=== PATIENT | female | born 1950 | race African-American/Black ===

== ENCOUNTER 2020-05-13 12:39 | Emergency (ER) | payer MEDICARE, SELFPAY ==
[2020-05-13 12:59] VITALS: BP 167/93; PULSE 78; RESP 14; TEMP 36.2; O2SAT 99
--- NOTE | 2020-05-13 13:10 | DI.CT.S_ITS ---
PROCEDURE: CT HEAD/BRAIN WO CON INDICATIONS: fall, hit head 2 days ago, 'woozy' TECHNIQUE: Noncontrast 4.5 mm thick angled axial sections acquired from the foramen magnum to the vertex, with coronal and sagittal reformats. For radiation dose reduction, the following was used: automated exposure control, adjustment of mA and/or kV according to patient size. COMPARISON: None. FINDINGS: Image quality: Excellent. CSF spaces: Basal cisterns are patent. No extra-axial fluid collections. The ventricles are symmetric in size and shape. Brain: No intracranial bleeds or masses. There is cerebral volume loss for age, with resultant ventricular and sulcal prominence. There are periventricular and deep white matter chronic small vessel ischemic changes. There is intracranial internal carotid artery atherosclerosis. Skull and face: Calvarium and visualized facial bones appear intact, without suspicious lesions. Sinuses: Visualized sinuses and mastoids are clear. IMPRESSION: No acute intracranial disease process. Dictated by: Carol Cobb MD, PhD on 05/13/2020 at 13:27 Approved by: Carol Cobb MD, PhD on 05/13/2020 at 13:39
--- NOTE | 2020-05-13 13:58 | ED_ITS ---
HPI - Fall <DAFNE Kapadia - Last Filed: 05/13/20 15:58> General Chief Complaint: Fall Stated Complaint: fall few days ago, hit head on car Time Seen by Provider: 05/13/20 12:49 Source: patient and family Mode of arrival: Ambulatory Limitations: no limitations History of Present Illness HPI Narrative: This is a 69-year-old female, nonsmoker, who has past medical history significant for hypertension presents to ED with chief complain of right forehead pain and feeling woozy. Patient reports she had taken a fall 2 days ago walking to her car on a uneven ground and she stumble into the car and hit her right-sided forehead and fell backwards on the ground. Patient denies loss of consciousness at that time. She denies vision changes, nausea, vomiting, or unusual behaviors according to daughter. Patient denies tingling, numbness, weakness to upper extremities or mid cervical tenderness. Patient takes baby aspirin or full dose aspirin daily. Patient has an appointment with new primary care physician Dr. Colindres at [facility]. Related Data Allergies Allergy/AdvReac Type Severity Reaction Status Date / Time No Known Drug Allergies Allergy Verified 05/13/20 13:04 Review of Systems <NICHOLAS KapadiaP - Last Filed: 05/13/20 15:58> Review of Systems Narrative: General: Denies fever, chills, fatigue, malaise, sweats. HEENT: See HPI Respiratory: Denies dyspnea, cough, wheezing, hemoptysis, sputum. Cardiovascular: Denies chest pain, palpitations, orthopnea, edema. Gastrointestinal: Denies nausea, vomiting, abdominal pain, diarrhea, constipation, melena. : Denies dysuria, frequency, incontinence, hematuria, urinary retention. Musculoskeletal: Denies weakness, joint pain or bony pain. Skin: Denies rash, skin lesions, or other. Neurologic: See HPI Psychiatric: No concerning psychosocial issues. 12-point review of systems is negative except for those stated above. Patient History <DAFNE Kapadia - Last Filed: 05/13/20 15:58> Medical History Hypertension Social History Smoking Status: Never smoker Smoking Status: Never smoker alcohol intake frequency: 0-2 drinks per day Substance Use Type: does not use Exam <Fer DAFNE Lindo - Last Filed: 05/13/20 15:58> Narrative Exam Narrative: GEN: Alert, oriented x 3, well appearing and nourished, and in no acute distress. Head: Normal cephalic, atraumatic. Right forehead tenderness to palpate. No temporal tenderness, step-offs, palpable mass or rash. EYES: Pupils are equal, round, and reactive to light and accommodation. Extraocular muscles are intact bilaterally. There is no subconjunctival hemorrhage, exudate and sclera non-icteric. ENT: Bilateral auditory canals and tympanic membranes clear without drainage or hemotympanum. Hearing grossly intact. Nose without bleeding, purulent discharge, septal hematoma or deviation. Mucous membrane moist, no mucosal lesion. Throat without erythema, tonsillar hypertrophy or exudate. Uvula in midline, airway patent. Neck: Trachea in midline. No JVD, non-tender without lymphadenopathy. No masses or thyroid megaly. Supple, non-tender to palpate in mid cervical region and no meningeal signs. CARDIAC: Normal regular rate and rhythm without murmurs, gallops, or rubs. No chest wall tenderness. No peripheral edema, cyanosis or pallor. Capillary refill is less than 2 seconds. No carotid bruits. RESPIRATORY: Lungs are cleat to auscultate bilaterally. No cough, wheezes, rales, or rhonchi. No stridor, respiratory distress, increase work of breathing, or accessary muscle used. ABD: Abdomen soft, nontender and non-distended. No guarding or rebound tenderness to palpate. Bowel sounds are normal in all 4 quadrants. There is no palpable masses or organomegaly. EXT: Full painless ROM of all extremities with no loss of sensation, strength, effusion or edema. SKIN: Warm, dry, normal color for patient. Left knee superficial mild abrasion without erythema, warmth or swelling. BACK: Nontender without deformity or crepitance. No flank tenderness. NEUROLOGICAL: Alert and oriented to place, time and person. No facial droops, dysphasia. Strength and sensation symmetric and intact throughout. Cerebellar testing normal. PSYCHIATRIC: Good judgement and reason, without hallucinations, abnormal affect or abnormal behaviors during the examination. Patient is not suicidal. Initial Vital Signs Initial Vital Signs: Vital Signs Temperature 97.1 F L 05/13/20 12:59 Pulse Rate 78 05/13/20 12:59 Respiratory Rate 14 05/13/20 12:59 Blood Pressure 167/93 H 05/13/20 12:59 Pulse Oximetry 99 05/13/20 12:59 <Edison Berry DO - Last Filed: 05/13/20 17:59> Initial Vital Signs Initial Vital Signs: Vital Signs Temperature 97.1 F L 05/13/20 12:59 Pulse Rate 78 05/13/20 12:59 Respiratory Rate 14 05/13/20 12:59 Blood Pressure 167/93 H 05/13/20 12:59 Pulse Oximetry 99 05/13/20 12:59 Scores <DAFNE Kapadia - Last Filed: 05/13/20 15:58> GCS Annabel coma scale eye opening: Spontaneous Annabel coma scale verbal response: Orientated Annabel coma scale motor response: Obey commands [place] coma scale total score: 15 Nexus Score for C-Spine Focal Neurologic deficit present: No Midline spinal tenderness present: No Altered level of conciousness present: No Intoxication present: No Distracting Injury Present: No Nexus Criteria for C-spine: 0 Course <DAFNE Kapadia - Last Filed: 05/13/20 15:58> Orders Ordered: ED Orders 05/13/20 13:10 CT head/brain wo con Stat Discontinued Medications Ibuprofen (Ibuprofen 400 Mg Tablet) 400 mg PO NOW ONE Stop: 05/13/20 13:56 Last Admin: 05/13/20 14:30 Dose: 400 mg Documented by: JORDAN Vital Signs Vital signs: Vital Signs - 8 hr 05/13/20 12:59 05/13/20 14:34 Temperature 97.1 F L Pulse Rate 78 65 Respiratory Rate 14 16 Blood Pressure 167/93 H 127/78 Pulse Oximetry 99 100 <Edison Berry DO - Last Filed: 05/13/20 17:59> Orders Ordered: ED Orders 05/13/20 13:10 CT head/brain wo con Stat Discontinued Medications Ibuprofen (Ibuprofen 400 Mg Tablet) 400 mg PO NOW ONE Stop: 05/13/20 13:56 Last Admin: 05/13/20 14:30 Dose: 400 mg Documented by: JORDAN Vital Signs Vital signs: Vital Signs - 8 hr 05/13/20 12:59 05/13/20 14:34 Temperature 97.1 F L Pulse Rate 78 65 Respiratory Rate 14 16 Blood Pressure 167/93 H 127/[address] [facility] - Fall <DAFNE Kapadia - Last Filed: 05/13/20 15:58> Differential Diagnosis Differential diagnosis: Likely concussion without loss of consciousness and other (Closed head injury, Sub/Epidural bleed, intracranial hemorrhage) Medical Records Attestation: I reviewed the patient's medical records. Imaging Data CT scan - head: Radiologist's Impression: [address] [id number] Scan ReportSigned Patient: Maile Leo#: [id number]: 1950Acct:[id number]/Sex: 69 / FDate of Service: 05/13/20Loc: EDAccession Number: [id number] Procedure: CT head/brain wo con Ordering Provider: Fer Lindo PROCEDURE: CT HEAD/BRAIN WO CON INDICATIONS: fall, hit head 2 days ago, 'woozy' TECHNIQUE: Noncontrast 4.5 mm thick angled axial sections acquired from the foramen magnum to the vertex, with coronal and sagittal reformats. For radiation dose reduction, the following was used: automated exposure control, adjustment of mA and/or kV according to patient size. COMPARISON: None. FINDINGS: Image quality: Excellent. CSF spaces: Basal cisterns are patent. No extra-axial fluid collections. The ventricles are symmetric in size and shape. Brain: No intracranial bleeds or masses. There is cerebral volume loss for age, with resultant ventricular and sulcal prominence. There are periventricular and deep white matter chronic small vessel ischemic changes. There is intracranial internal carotid artery atherosclerosis. Skull and face: Calvarium and visualized facial bones appear intact, without suspicious lesions. Sinuses: Visualized sinuses and mastoids are clear. IMPRESSION: No acute intracranial disease process. Dictated by: Carol Cobb MD, PhD on 05/13/2020 at 13:27 Approved by: Carol Cobb MD, PhD on 05/13/2020 at 13:39 [facility] Narrative Medical decision making narrative: This is a pleasant 69-year-old female presents to ED with her daughter with chief complain of fall on on even ground and landed on right side forehead to her car initially and fell backwards on the ground. She also reports left knee abrasion but is able to bear her weight on bilateral legs without difficulty and has stable gait. Physical exam was unremarkable with no focal neurological deficit. There is no mid cervical tenderness to palpate with intact sensation and strength in upper bilateral extremities. Head CT test was negative for acute findings. GCS 15 and Nexus c spine score 0. Patient was medicated with Motrin and declined Tylenol stating does not work for her. Patient advised to follow-up with primary care physician with return precautions to ED and she verbalized understanding in agreement with the treatment plan. Discharge Plan Departure Patient Disposition: Home Clinical Impression: CHI (closed head injury) Qualifiers: Encounter type: initial encounter Qualified Code(s): S09.90XA - Unspecified injury of head, initial encounter Fall Qualifiers: Encounter type: initial encounter Qualified Code(s): W19.XXXA - Unspecified fall, initial encounter Instructions: DI for Closed Head Injury Activity Restrictions/Additional Instructions: You have been diagnosed with [closed head injury from a fall. Head CT test was negative for acute findings.]. What to do: *Take your medications as directed. You can take [id number] Tylenol and or Motrin as needed for discomfort. *Follow up with your primary care provider in 2-3 days, call for an appointment. Let them know you were seen in the ED and that we asked you to be seen in follow up. *Return to ED if you have any new, worsening, or concerning symptoms, such as [worsening headache, double vision, vomiting, weakness/numbness/tingling on upper extremities, or any acute concerns]. Referrals: Mauro Bae MD [Non-Staff] - <Edison Berry DO - Last Filed: 05/13/20 17:59> Cosign ED Attending Cosignature Attestation: Dr Berry Co-Sign Statement: I was available for consultation during this patient's emergency department visit. This chart is signed by myself for administrative purposes only. I did not have direct contact with this patient during this visit. They were seen independently by the APC.
[2020-05-13] MEDS: IBUPROFEN 400 MG TABLET PO (14:30)
[2020-05-13 14:34] VITALS: BP 127/78; PULSE 65; RESP 16; O2SAT 100
== END 2020-05-13 14:36 | disposition home or self-care (01) ==
PROVIDERS: Emergency Provider Nurse Practitioner Family
DX: S09.90XA Unspecified injury of head, initial encounter (principal); I10 Essential (primary) hypertension; Z79.82 Long term (current) use of aspirin; W19.XXXA Unspecified fall, initial encounter
CPT/HCPCS: 70450; 99283; 99284

== ENCOUNTER → 2023-05-16 13:02 | Outpatient (CLI) | payer MEDICARE, SELFPAY | LOC: WC 13:40 | PROVIDERS: PCP Internal Medicine; Referring Provider Podiatrist; Visit Provider Surgery | DX: L97.322 Non-pressure chronic ulcer of left ankle with fat layer exposed (principal); I87.2 Venous insufficiency (chronic) (peripheral); R60.0 Localized edema; I10 Essential (primary) hypertension | CPT/HCPCS: 11042; 11045; 87070; 87075; 87077; 87186; 87205; 99203; 99214 ==

== ENCOUNTER → 2023-05-21 10:56 | Outpatient (CLI) | payer MEDICARE, SELFPAY | PROVIDERS: PCP Internal Medicine; Referring Provider Podiatrist; Visit Provider Physician Assistant | DX: L97.322 Non-pressure chronic ulcer of left ankle with fat layer exposed (principal); I87.2 Venous insufficiency (chronic) (peripheral); R60.0 Localized edema | CPT/HCPCS: 29580 ==

== ENCOUNTER → 2023-05-24 10:39 | Outpatient (CLI) | payer MEDICARE, SELFPAY | LOC: WC 10:40 | PROVIDERS: PCP Internal Medicine; Referring Provider Podiatrist; Visit Provider Physician Assistant | DX: L97.322 Non-pressure chronic ulcer of left ankle with fat layer exposed (principal); I87.2 Venous insufficiency (chronic) (peripheral); R60.0 Localized edema | CPT/HCPCS: 29581 ==

== ENCOUNTER → 2023-05-28 11:06 | Outpatient (CLI) | payer MEDICARE, SELFPAY | LOC: WC 11:07 | PROVIDERS: PCP Internal Medicine; Referring Provider Podiatrist; Visit Provider Surgery | DX: L97.322 Non-pressure chronic ulcer of left ankle with fat layer exposed (principal); I87.2 Venous insufficiency (chronic) (peripheral); R60.0 Localized edema; I10 Essential (primary) hypertension | CPT/HCPCS: 11042; 11045; 99213 ==

== ENCOUNTER → 2023-06-04 13:26 | Outpatient (CLI) | payer MEDICARE, SELFPAY | PROVIDERS: PCP Internal Medicine; Referring Provider Podiatrist; Visit Provider Surgery | DX: L97.322 Non-pressure chronic ulcer of left ankle with fat layer exposed (principal); I87.2 Venous insufficiency (chronic) (peripheral); R60.0 Localized edema; I10 Essential (primary) hypertension | CPT/HCPCS: 11042; 11045 ==

== ENCOUNTER → 2023-06-06 13:02 | Outpatient (CLI) | payer MEDICARE, SELFPAY | PROVIDERS: PCP Internal Medicine; Referring Provider Podiatrist; Visit Provider Surgery | DX: L97.322 Non-pressure chronic ulcer of left ankle with fat layer exposed (principal); I87.2 Venous insufficiency (chronic) (peripheral); R60.0 Localized edema | CPT/HCPCS: 29581 ==

== ENCOUNTER → 2023-06-10 11:24 | Outpatient (CLI) | payer MEDICARE, SELFPAY | LOC: WC 11:24 | PROVIDERS: PCP Internal Medicine; Referring Provider Podiatrist; Visit Provider Surgery | DX: L97.322 Non-pressure chronic ulcer of left ankle with fat layer exposed (principal); I87.2 Venous insufficiency (chronic) (peripheral); R60.0 Localized edema; M25.571 Pain in right ankle and joints of right foot; I10 Essential (primary) hypertension; Z79.2 Long term (current) use of antibiotics | CPT/HCPCS: 29581; 99213 ==

== ENCOUNTER → 2023-06-13 08:57 | Outpatient (CLI) | payer MEDICARE, SELFPAY | LOC: WC 06-19 08:58 | PROVIDERS: PCP Internal Medicine; Referring Provider Podiatrist; Visit Provider Surgery | DX: L97.322 Non-pressure chronic ulcer of left ankle with fat layer exposed (principal); I87.2 Venous insufficiency (chronic) (peripheral); R60.0 Localized edema; L08.89 Other specified local infections of the skin and subcutaneous tissue | CPT/HCPCS: 29581 ==

== ENCOUNTER → 2023-06-17 11:20 | Outpatient (CLI) | payer MEDICARE, SELFPAY | LOC: WC 11:20 | PROVIDERS: PCP Internal Medicine; Referring Provider Podiatrist; Visit Provider Surgery | DX: L97.322 Non-pressure chronic ulcer of left ankle with fat layer exposed (principal); I87.2 Venous insufficiency (chronic) (peripheral); L08.89 Other specified local infections of the skin and subcutaneous tissue; Z79.2 Long term (current) use of antibiotics; I10 Essential (primary) hypertension | CPT/HCPCS: 11042; 11045; 99213 ==

== ENCOUNTER → 2023-06-20 11:29 | Outpatient (CLI) | payer MEDICARE, SELFPAY | LOC: WC 11:30 | PROVIDERS: PCP Internal Medicine; Referring Provider Podiatrist; Visit Provider Surgery | DX: L97.322 Non-pressure chronic ulcer of left ankle with fat layer exposed (principal); I87.2 Venous insufficiency (chronic) (peripheral); R60.0 Localized edema | CPT/HCPCS: 29581 ==

== ENCOUNTER → 2023-06-24 08:44 | Outpatient (CLI) | payer MEDICARE, SELFPAY | PROVIDERS: PCP Internal Medicine; Referring Provider Podiatrist; Visit Provider Surgery | DX: L97.322 Non-pressure chronic ulcer of left ankle with fat layer exposed (principal); I87.2 Venous insufficiency (chronic) (peripheral); I10 Essential (primary) hypertension; R60.0 Localized edema | CPT/HCPCS: 29581; 99213 ==

== ENCOUNTER → 2023-06-27 11:02 | Outpatient (CLI) | payer MEDICARE, SELFPAY | LOC: WC 11:04 | PROVIDERS: PCP Internal Medicine; Referring Provider Podiatrist; Visit Provider Surgery | DX: L97.322 Non-pressure chronic ulcer of left ankle with fat layer exposed (principal); I87.2 Venous insufficiency (chronic) (peripheral); R60.0 Localized edema | CPT/HCPCS: 29581 ==

== ENCOUNTER → 2023-07-01 11:05 | Outpatient (CLI) | payer MEDICARE, SELFPAY | PROVIDERS: PCP Internal Medicine; Referring Provider Podiatrist; Visit Provider Surgery | DX: L97.322 Non-pressure chronic ulcer of left ankle with fat layer exposed (principal); I87.2 Venous insufficiency (chronic) (peripheral); R60.0 Localized edema | CPT/HCPCS: 29581; 87070; 87075; 87077; 87186; 87205; 99213 ==

== ENCOUNTER → 2023-07-01 14:30 | Outpatient (CLI) | payer MEDICARE, SELFPAY ==
--- NOTE | 2023-07-01 | DI.US.S_ITS ---
PROCEDURE: US THYROID INDICATIONS: Nontoxic single thyroid nodule TECHNIQUE: Real-time scanning was performed of the thyroid gland, with image documentation. COMPARISON: None. FINDINGS: Thyroid: Right lobe measures 4.2 x 1.6 x 1.8 cm. Left lobe measures 3.5 x 1.4 x 1.4 cm. Isthmus is 3 cm thick. Echotexture is homogeneous. Nodule number: 1 Location: Isthmus Size: 1.3 x 0.5 x 1.0 cm. Composition: Solid Echogenicity: Hypoechoic Shape: wider than tall. Margins: Smooth Echogenic foci: Punctate Total points: 7 ACR TI-RADS category: 5 Nodule number: 2 Location: Right mid Size: 0.8 x 0.6 x 0.8 cm. Composition: Solid Echogenicity: Hypoechoic Shape: wider than tall. Margins: Smooth Echogenic foci: None Total points: 4 ACR TI-RADS category: 4 Nodule number: 3 Location: Left inferior Size: 1.2 x 1.0 x 1.4 cm. Composition: Solid Echogenicity: Hypoechoic Shape: wider than tall. Margins: Smooth Echogenic foci: Punctate Total points: 7 ACR TI-RADS category: 5 IMPRESSION: Lesions 1 and 3 are considered category 5. Secondary to size, FNA is recommended. Lesion 2 is considered category 4. Secondary to size and characteristics, no additional follow-up as below. ACR TI-RADS definitions and recommendations: TI-RADS 1 (benign): 0 points. FNA not needed. TI-RADS 2 (not suspicious): 2 points. FNA not needed. TI-RADS 3 (mildly suspicious): 3 points. * FNA if 2.5 cm or larger, follow up if 1.5 cm or larger (at 1, 3, and 5 years). TI-RADS 4 (moderately suspicious): 4-6 points. * FNA if 1.5 cm or larger, follow up if 1 cm or larger (at 1, 2, 3, and 5 years). TI-RADS 5 (highly suspicious): 7 points or more. * FNA if 1 cm or larger, follow up if 0.5 cm or larger (every year for 5 years). Dictated by: Adeline Salmon M.D. on 07/01/2023 at 17:41 Approved by: Adeline Salmon M.D. on 07/01/2023 at 17:43
== END ==
PROVIDERS: PCP Internal Medicine; Referring Provider Internal Medicine; Visit Provider Internal Medicine
DX: E04.2 Nontoxic multinodular goiter (principal); L97.322 Non-pressure chronic ulcer of left ankle with fat layer exposed; I87.2 Venous insufficiency (chronic) (peripheral); R60.0 Localized edema
CPT/HCPCS: 29581; 76536; 87070; 87075; 87077; 87186; 87205

== ENCOUNTER → 2023-07-04 14:15 | Outpatient (CLI) | payer MEDICARE, SELFPAY | LOC: WC 14:15 | PROVIDERS: PCP Internal Medicine; Referring Provider Podiatrist; Visit Provider Surgery | DX: L97.322 Non-pressure chronic ulcer of left ankle with fat layer exposed (principal); I87.2 Venous insufficiency (chronic) (peripheral); R60.0 Localized edema | CPT/HCPCS: 99213 ==

== ENCOUNTER → 2023-07-08 13:13 | Outpatient (CLI) | payer MEDICARE, SELFPAY | LOC: WC 13:13 | PROVIDERS: PCP Internal Medicine; Referring Provider Internal Medicine; Visit Provider Surgery | DX: L97.322 Non-pressure chronic ulcer of left ankle with fat layer exposed (principal); I87.2 Venous insufficiency (chronic) (peripheral); R60.0 Localized edema | CPT/HCPCS: 11042; 11045 ==

== ENCOUNTER → 2023-07-15 15:47 | Outpatient (CLI) | payer MEDICARE, SELFPAY | PROVIDERS: PCP Internal Medicine; Referring Provider Podiatrist; Visit Provider Surgery | DX: L97.322 Non-pressure chronic ulcer of left ankle with fat layer exposed (principal); I87.2 Venous insufficiency (chronic) (peripheral); R60.0 Localized edema; I10 Essential (primary) hypertension | CPT/HCPCS: 11042; 11045; 99213 ==

== ENCOUNTER → 2023-07-22 10:06 | Outpatient (CLI) | payer MEDICARE, SELFPAY | LOC: WC 10:33 | PROVIDERS: PCP Internal Medicine; Referring Provider Podiatrist; Visit Provider Surgery | DX: L97.322 Non-pressure chronic ulcer of left ankle with fat layer exposed (principal); I87.2 Venous insufficiency (chronic) (peripheral); R60.0 Localized edema; I10 Essential (primary) hypertension | CPT/HCPCS: 11042 ==

== ENCOUNTER → 2023-07-29 12:50 | Outpatient (CLI) | payer MEDICARE, SELFPAY | LOC: WC 12:51 | PROVIDERS: PCP Internal Medicine; Referring Provider Family Medicine; Visit Provider Surgery | DX: L97.322 Non-pressure chronic ulcer of left ankle with fat layer exposed (principal); I87.2 Venous insufficiency (chronic) (peripheral); R60.0 Localized edema; I10 Essential (primary) hypertension | CPT/HCPCS: 11042; 11045 ==

== ENCOUNTER → 2023-08-05 14:34 | Outpatient (CLI) | payer MEDICARE, SELFPAY | LOC: WC 14:40 | PROVIDERS: PCP Internal Medicine; Referring Provider Podiatrist; Visit Provider Surgery | DX: L97.322 Non-pressure chronic ulcer of left ankle with fat layer exposed (principal); I87.2 Venous insufficiency (chronic) (peripheral); R60.0 Localized edema; M25.572 Pain in left ankle and joints of left foot; I10 Essential (primary) hypertension | CPT/HCPCS: 11042 ==

== ENCOUNTER → 2023-08-14 11:22 | Outpatient (CLI) | payer MEDICARE, SELFPAY | PROVIDERS: PCP Internal Medicine; Referring Provider Podiatrist; Visit Provider Surgery | DX: L97.322 Non-pressure chronic ulcer of left ankle with fat layer exposed (principal); I87.2 Venous insufficiency (chronic) (peripheral); R60.0 Localized edema; I10 Essential (primary) hypertension; M25.572 Pain in left ankle and joints of left foot | CPT/HCPCS: 97597; 97598; 99213 ==

== ENCOUNTER → 2023-08-19 11:11 | Outpatient (CLI) | payer MEDICARE, SELFPAY | LOC: WC 11:11 | PROVIDERS: PCP Internal Medicine; Referring Provider Podiatrist; Visit Provider Surgery | DX: L97.322 Non-pressure chronic ulcer of left ankle with fat layer exposed (principal); I87.2 Venous insufficiency (chronic) (peripheral); R60.0 Localized edema; I10 Essential (primary) hypertension | CPT/HCPCS: 11042 ==

== ENCOUNTER → 2023-08-26 11:32 | Outpatient (CLI) | payer MEDICARE, SELFPAY | LOC: WC 11:33 | PROVIDERS: PCP Internal Medicine; Referring Provider Podiatrist; Visit Provider Surgery | DX: L97.322 Non-pressure chronic ulcer of left ankle with fat layer exposed (principal); I87.2 Venous insufficiency (chronic) (peripheral); R60.0 Localized edema; I10 Essential (primary) hypertension | CPT/HCPCS: 11042; 11045 ==

== ENCOUNTER → 2023-09-02 11:23 | Outpatient (CLI) | payer MEDICARE, SELFPAY | LOC: WC 11:23 | PROVIDERS: PCP Internal Medicine; Referring Provider Podiatrist; Visit Provider Surgery | DX: L97.322 Non-pressure chronic ulcer of left ankle with fat layer exposed (principal); I87.2 Venous insufficiency (chronic) (peripheral); R60.0 Localized edema; M25.572 Pain in left ankle and joints of left foot; I10 Essential (primary) hypertension | CPT/HCPCS: 11042 ==

== ENCOUNTER → 2023-09-09 11:33 | Outpatient (CLI) | payer MEDICARE, SELFPAY | PROVIDERS: PCP Internal Medicine; Referring Provider Podiatrist; Visit Provider Surgery | DX: L97.322 Non-pressure chronic ulcer of left ankle with fat layer exposed (principal); I87.2 Venous insufficiency (chronic) (peripheral); R60.0 Localized edema; I10 Essential (primary) hypertension | CPT/HCPCS: 11042; 11045; 99213 ==

== ENCOUNTER → 2023-09-16 13:52 | Outpatient (CLI) | payer MEDICARE, SELFPAY | LOC: WC 13:53 | PROVIDERS: PCP Internal Medicine; Referring Provider Podiatrist; Visit Provider Surgery | DX: L97.322 Non-pressure chronic ulcer of left ankle with fat layer exposed (principal); I87.332 Chronic venous hypertension (idiopathic) with ulcer and inflammation of left lower extremity; R60.0 Localized edema; M25.572 Pain in left ankle and joints of left foot | CPT/HCPCS: 11042 ==

== ENCOUNTER → 2023-09-23 11:43 | Outpatient (CLI) | payer MEDICARE, SELFPAY | PROVIDERS: PCP Internal Medicine; Referring Provider Internal Medicine; Visit Provider Surgery | DX: L97.322 Non-pressure chronic ulcer of left ankle with fat layer exposed (principal); I87.332 Chronic venous hypertension (idiopathic) with ulcer and inflammation of left lower extremity; R60.0 Localized edema | CPT/HCPCS: 11042; 11045 ==

== ENCOUNTER → 2023-09-30 11:13 | Outpatient (CLI) | payer MEDICARE, SELFPAY | PROVIDERS: PCP Internal Medicine; Referring Provider Podiatrist; Visit Provider Surgery | DX: L97.322 Non-pressure chronic ulcer of left ankle with fat layer exposed (principal); I87.2 Venous insufficiency (chronic) (peripheral); R60.0 Localized edema; M25.572 Pain in left ankle and joints of left foot | CPT/HCPCS: 11042 ==

== ENCOUNTER → 2023-10-07 11:48 | Outpatient (CLI) | payer MEDICARE, SELFPAY | LOC: WC 11:50 | PROVIDERS: PCP Internal Medicine; Referring Provider Podiatrist; Visit Provider Surgery | DX: L97.322 Non-pressure chronic ulcer of left ankle with fat layer exposed (principal); I87.2 Venous insufficiency (chronic) (peripheral); R60.0 Localized edema; I10 Essential (primary) hypertension | CPT/HCPCS: 11042; 99213 ==

== ENCOUNTER → 2023-10-14 12:42 | Outpatient (CLI) | payer MEDICARE, SELFPAY | LOC: WC 12:43 | PROVIDERS: PCP Internal Medicine; Referring Provider Podiatrist; Visit Provider Physician Assistant | DX: I87.2 Venous insufficiency (chronic) (peripheral) (principal); R60.0 Localized edema; I10 Essential (primary) hypertension | CPT/HCPCS: 11042; 99214 ==

== ENCOUNTER → 2023-10-28 13:46 | Outpatient (CLI) | payer MEDICARE, SELFPAY | LOC: WC 14:00 | PROVIDERS: PCP Internal Medicine; Referring Provider Podiatrist; Visit Provider Surgery | DX: L97.322 Non-pressure chronic ulcer of left ankle with fat layer exposed (principal); I87.2 Venous insufficiency (chronic) (peripheral); R60.0 Localized edema | CPT/HCPCS: 11042 ==

== ENCOUNTER → 2023-11-04 11:04 | Outpatient (CLI) | payer MEDICARE, SELFPAY | LOC: WC 11:04 | PROVIDERS: PCP Internal Medicine; Referring Provider Podiatrist; Visit Provider Surgery | DX: I87.2 Venous insufficiency (chronic) (peripheral) (principal); L97.322 Non-pressure chronic ulcer of left ankle with fat layer exposed; L98.8 Other specified disorders of the skin and subcutaneous tissue; R60.0 Localized edema | CPT/HCPCS: 11042; 99213 ==

== ENCOUNTER → 2023-11-19 11:26 | Outpatient (CLI) | payer MEDICARE, SELFPAY | PROVIDERS: PCP Internal Medicine; Referring Provider Podiatrist; Visit Provider Surgery | DX: L97.322 Non-pressure chronic ulcer of left ankle with fat layer exposed (principal); I87.2 Venous insufficiency (chronic) (peripheral); R60.0 Localized edema; M25.572 Pain in left ankle and joints of left foot | CPT/HCPCS: 11042 ==

== ENCOUNTER → 2023-11-25 11:18 | Outpatient (CLI) | payer MEDICARE, SELFPAY | LOC: WC 11:20 | PROVIDERS: PCP Internal Medicine; Referring Provider Podiatrist; Visit Provider Surgery | DX: L97.322 Non-pressure chronic ulcer of left ankle with fat layer exposed (principal); I87.2 Venous insufficiency (chronic) (peripheral); R60.0 Localized edema; M25.571 Pain in right ankle and joints of right foot | CPT/HCPCS: 11042 ==

== ENCOUNTER → 2023-12-02 13:53 | Outpatient (CLI) | payer MEDICARE, SELFPAY | LOC: WC 13:54 | PROVIDERS: PCP Internal Medicine; Referring Provider Podiatrist; Visit Provider Surgery | DX: L97.322 Non-pressure chronic ulcer of left ankle with fat layer exposed (principal); I87.2 Venous insufficiency (chronic) (peripheral); R60.0 Localized edema; M25.571 Pain in right ankle and joints of right foot; I10 Essential (primary) hypertension | CPT/HCPCS: 11042; 99213 ==

== ENCOUNTER → 2023-12-09 11:49 | Outpatient (CLI) | payer MEDICARE, SELFPAY | LOC: WC 11:57 | PROVIDERS: PCP Internal Medicine; Referring Provider Podiatrist; Visit Provider Surgery | DX: L97.322 Non-pressure chronic ulcer of left ankle with fat layer exposed (principal); I87.2 Venous insufficiency (chronic) (peripheral); R60.0 Localized edema | CPT/HCPCS: 11042 ==

== ENCOUNTER → 2023-12-16 13:13 | Outpatient (CLI) | payer MEDICARE, SELFPAY | PROVIDERS: PCP Internal Medicine; Referring Provider Podiatrist; Visit Provider Surgery | DX: L97.322 Non-pressure chronic ulcer of left ankle with fat layer exposed (principal); I87.2 Venous insufficiency (chronic) (peripheral); R60.0 Localized edema | CPT/HCPCS: 11042 ==

== ENCOUNTER → 2023-12-30 11:16 | Outpatient (CLI) | payer MEDICARE, SELFPAY | LOC: WC 11:17 | PROVIDERS: PCP Internal Medicine; Referring Provider Podiatrist; Visit Provider Surgery | DX: L97.322 Non-pressure chronic ulcer of left ankle with fat layer exposed (principal); I87.2 Venous insufficiency (chronic) (peripheral); L53.9 Erythematous condition, unspecified; R60.0 Localized edema | CPT/HCPCS: 11042 ==

== ENCOUNTER → 2024-01-09 14:39 | Outpatient (CLI) | payer MEDICARE, SELFPAY | LOC: WC 14:41 | PROVIDERS: PCP Internal Medicine; Referring Provider Internal Medicine; Visit Provider Surgery | DX: L97.322 Non-pressure chronic ulcer of left ankle with fat layer exposed (principal); I87.2 Venous insufficiency (chronic) (peripheral); R60.0 Localized edema; L53.9 Erythematous condition, unspecified | CPT/HCPCS: 11042; 99213 ==

== ENCOUNTER → 2024-01-13 13:53 | Outpatient (CLI) | payer MEDICARE, SELFPAY | LOC: WC 13:54 | PROVIDERS: PCP Internal Medicine; Referring Provider Podiatrist; Visit Provider Surgery | DX: L97.322 Non-pressure chronic ulcer of left ankle with fat layer exposed (principal); I87.2 Venous insufficiency (chronic) (peripheral); R60.0 Localized edema; L53.9 Erythematous condition, unspecified | CPT/HCPCS: 11042 ==

== ENCOUNTER → 2024-01-20 11:16 | Outpatient (CLI) | payer MEDICARE, SELFPAY | LOC: WC 11:17 | PROVIDERS: PCP Internal Medicine; Referring Provider Podiatrist; Visit Provider Surgery | DX: L97.322 Non-pressure chronic ulcer of left ankle with fat layer exposed (principal); I87.2 Venous insufficiency (chronic) (peripheral); R60.0 Localized edema; L53.9 Erythematous condition, unspecified | CPT/HCPCS: 11042 ==

== ENCOUNTER → 2024-01-27 11:07 | Outpatient (CLI) | payer MEDICARE, SELFPAY | PROVIDERS: PCP Internal Medicine; Referring Provider Podiatrist; Visit Provider Surgery | DX: L97.322 Non-pressure chronic ulcer of left ankle with fat layer exposed (principal); I87.2 Venous insufficiency (chronic) (peripheral); R60.0 Localized edema | CPT/HCPCS: 11042 ==

== ENCOUNTER → 2024-02-03 11:05 | Outpatient (CLI) | payer MEDICARE, SELFPAY | PROVIDERS: PCP Internal Medicine; Referring Provider Podiatrist; Visit Provider Surgery | DX: I87.2 Venous insufficiency (chronic) (peripheral) (principal); L97.322 Non-pressure chronic ulcer of left ankle with fat layer exposed; L98.8 Other specified disorders of the skin and subcutaneous tissue; R60.0 Localized edema | CPT/HCPCS: 11042 ==

== ENCOUNTER → 2024-02-10 11:08 | Outpatient (CLI) | payer MEDICARE, SELFPAY | PROVIDERS: PCP Internal Medicine; Referring Provider Podiatrist; Visit Provider Surgery | DX: L97.322 Non-pressure chronic ulcer of left ankle with fat layer exposed (principal); I87.2 Venous insufficiency (chronic) (peripheral); R60.0 Localized edema; I10 Essential (primary) hypertension | CPT/HCPCS: 11042; 99213 ==

== ENCOUNTER → 2024-02-17 11:15 | Outpatient (CLI) | payer MEDICARE, SELFPAY | PROVIDERS: PCP Internal Medicine; Referring Provider Podiatrist; Visit Provider Surgery | DX: L97.322 Non-pressure chronic ulcer of left ankle with fat layer exposed (principal); I87.2 Venous insufficiency (chronic) (peripheral); R60.0 Localized edema; I10 Essential (primary) hypertension | CPT/HCPCS: 11042 ==

== ENCOUNTER → 2024-02-24 11:10 | Outpatient (CLI) | payer MEDICARE, SELFPAY | PROVIDERS: PCP Internal Medicine; Referring Provider Podiatrist; Visit Provider Surgery | DX: L97.322 Non-pressure chronic ulcer of left ankle with fat layer exposed (principal); I87.2 Venous insufficiency (chronic) (peripheral); R60.0 Localized edema; I10 Essential (primary) hypertension | CPT/HCPCS: 11042 ==

== ENCOUNTER → 2024-03-02 11:17 | Outpatient (CLI) | payer MEDICARE, SELFPAY | LOC: WC 11:18 | PROVIDERS: PCP Internal Medicine; Referring Provider Podiatrist; Visit Provider Surgery | DX: L97.322 Non-pressure chronic ulcer of left ankle with fat layer exposed (principal); I87.2 Venous insufficiency (chronic) (peripheral); R60.0 Localized edema | CPT/HCPCS: 11042 ==

== ENCOUNTER → 2024-03-16 11:13 | Outpatient (CLI) | payer MEDICARE, SELFPAY | LOC: WC 11:14 | PROVIDERS: PCP Internal Medicine; Referring Provider Podiatrist; Visit Provider Surgery | DX: L97.322 Non-pressure chronic ulcer of left ankle with fat layer exposed (principal); I87.2 Venous insufficiency (chronic) (peripheral); R60.0 Localized edema; I10 Essential (primary) hypertension | CPT/HCPCS: 11042 ==

== ENCOUNTER → 2024-03-24 11:16 | Outpatient (CLI) | payer MEDICARE, SELFPAY | LOC: WC 11:17 | PROVIDERS: PCP Internal Medicine; Referring Provider Internal Medicine; Visit Provider Surgery | DX: L97.322 Non-pressure chronic ulcer of left ankle with fat layer exposed (principal); I87.2 Venous insufficiency (chronic) (peripheral); R60.0 Localized edema; I10 Essential (primary) hypertension | CPT/HCPCS: 11042; 99213 ==

== ENCOUNTER → 2024-03-30 11:11 | Outpatient (CLI) | payer MEDICARE, SELFPAY | LOC: WC 11:12 | PROVIDERS: PCP Internal Medicine; Referring Provider Podiatrist; Visit Provider Surgery | DX: L97.322 Non-pressure chronic ulcer of left ankle with fat layer exposed (principal); I87.2 Venous insufficiency (chronic) (peripheral); R60.0 Localized edema; I10 Essential (primary) hypertension | CPT/HCPCS: 11042 ==

== ENCOUNTER → 2024-04-06 13:19 | Outpatient (CLI) | payer MEDICARE, SELFPAY | LOC: WC 13:20 | PROVIDERS: PCP Internal Medicine; Referring Provider Podiatrist; Visit Provider Surgery | DX: L97.322 Non-pressure chronic ulcer of left ankle with fat layer exposed (principal); I87.2 Venous insufficiency (chronic) (peripheral); R60.0 Localized edema; I10 Essential (primary) hypertension | CPT/HCPCS: 11042 ==

== ENCOUNTER → 2024-04-13 11:14 | Outpatient (CLI) | payer MEDICARE, SELFPAY | LOC: WC 11:17 | PROVIDERS: PCP Internal Medicine; Referring Provider Podiatrist; Visit Provider Surgery | DX: I87.2 Venous insufficiency (chronic) (peripheral) (principal); L97.322 Non-pressure chronic ulcer of left ankle with fat layer exposed; L08.9 Local infection of the skin and subcutaneous tissue, unspecified; L98.8 Other specified disorders of the skin and subcutaneous tissue; R60.0 Localized edema | CPT/HCPCS: 11042; 87070; 87075; 87077; 87186; 87205; 99213 ==

== ENCOUNTER → 2024-04-27 11:10 | Outpatient (CLI) | payer MEDICARE, SELFPAY | LOC: WC 11:10 | PROVIDERS: PCP Internal Medicine; Referring Provider Podiatrist; Visit Provider Surgery | DX: I87.2 Venous insufficiency (chronic) (peripheral) (principal); L97.322 Non-pressure chronic ulcer of left ankle with fat layer exposed; R60.0 Localized edema | CPT/HCPCS: 11042; 99213 ==

== ENCOUNTER → 2024-05-04 11:10 | Outpatient (CLI) | payer MEDICARE, SELFPAY | LOC: WC 11:13 | PROVIDERS: PCP Internal Medicine; Referring Provider Podiatrist; Visit Provider Surgery | DX: L97.322 Non-pressure chronic ulcer of left ankle with fat layer exposed (principal); I87.2 Venous insufficiency (chronic) (peripheral) | CPT/HCPCS: 11042 ==

== ENCOUNTER → 2024-05-11 11:50 | Outpatient (CLI) | payer MEDICARE, SELFPAY | LOC: WC 11:56 | PROVIDERS: PCP Internal Medicine; Referring Provider Podiatrist; Visit Provider Surgery | DX: I87.2 Venous insufficiency (chronic) (peripheral) (principal); L97.322 Non-pressure chronic ulcer of left ankle with fat layer exposed; L98.8 Other specified disorders of the skin and subcutaneous tissue | CPT/HCPCS: 11042 ==

== ENCOUNTER → 2024-05-18 11:52 | Outpatient (CLI) | payer MEDICARE, SELFPAY | LOC: WC 11:52 | PROVIDERS: PCP Internal Medicine; Referring Provider Podiatrist; Visit Provider Surgery | DX: I87.2 Venous insufficiency (chronic) (peripheral) (principal); L97.322 Non-pressure chronic ulcer of left ankle with fat layer exposed; L98.8 Other specified disorders of the skin and subcutaneous tissue | CPT/HCPCS: 11042 ==

== ENCOUNTER → 2024-05-25 11:15 | Outpatient (CLI) | payer MEDICARE, SELFPAY | LOC: WC 11:16 | PROVIDERS: PCP Internal Medicine; Referring Provider Podiatrist; Visit Provider Surgery | DX: I87.2 Venous insufficiency (chronic) (peripheral) (principal); L97.322 Non-pressure chronic ulcer of left ankle with fat layer exposed; L98.8 Other specified disorders of the skin and subcutaneous tissue | CPT/HCPCS: 11042; 99213 ==

== ENCOUNTER → 2024-06-01 11:04 | Outpatient (CLI) | payer MEDICARE, SELFPAY | LOC: WC 11:09 | PROVIDERS: PCP Internal Medicine; Referring Provider Internal Medicine; Visit Provider Surgery | DX: I87.2 Venous insufficiency (chronic) (peripheral) (principal); L97.322 Non-pressure chronic ulcer of left ankle with fat layer exposed; L98.8 Other specified disorders of the skin and subcutaneous tissue; I10 Essential (primary) hypertension | CPT/HCPCS: 11042 ==

== ENCOUNTER → 2024-06-08 11:33 | Outpatient (CLI) | payer MEDICARE, SELFPAY ==
--- NOTE | 2024-06-08 | OV.WND_ITS ---
PROGRESS NOTE DETAILS PATIENT NAME: UMESH ESTEBAN PATIENT NUMBER: [id number] CLINICIAN: GREGORIA ALVA RN PATIENT DATE OF : 1950 PHYSICIAN / WELFARE AIDE: PO FLORES PATIENT SUBJECTIVE CHIEF COMPLAINT THIS INFORMATION WAS OBTAINED FROM THE PATIENT. LEFT ANKLE GENERAL NOTES VENOUS ULCER ON LEFT ANKLE. ALLERGIES NO KNOWN DRUG ALLERGIES, PEANUT OIL (SEVERITY: MILD), ONION (SEVERITY: MODERATE), HOUSE DUST (SEVERITY: MILD) HPI THIS INFORMATION WAS OBTAINED FROM THE PATIENT. THE FOLLOWING HPI ELEMENTS WERE DOCUMENTED FOR THE PATIENT'S WOUND: LOCATION: L ANKLE DURATION: 11/16/22 CONTEXT: VENOUS THE PATIENT IS A 73-YEAR-OLD FEMALE WITH A HISTORY OF HYPERTENSION AND CHRONIC VENOUS INSUFFICIENCY WHO RETURNS TODAY FOR FOLLOW UP OF VENOUS ULCER OF THE LEFT ANKLE. THE PATIENT IS RECEIVING DRESSING CHANGES WITH URGO CLEAN WITH PERSONAL COMPRESSION AND ACETIC ACID RINSES WITH EACH DRESSING CHANGE. SHE HAS BEEN ABLE TO TOLERATE THE URGO CLEAN AND HAS BEEN HAVING ONLY OCCASIONAL PAIN. THE PATIENT HAS NOT HAD ANY ERYTHEMA OR FEVER. SHE HAS HAD AN ULCER IN THE SAME LOCATION SEVERAL TIMES IN THE PAST. SHE HAS PREVIOUSLY HAD ULCERS ON THE RIGHT SIDE WELL BUT NOT IN THE PAST SEVERAL YEARS. PATIENT GIVES A HISTORY OF HAVING A VEIN PROCEDURE ON THE LEFT IN THE . SHE DOES NOT HAVE ANY HISTORY OF DVT. THE PATIENT REPORTS A GOOD APPETITE AND IS TAKING PROTEIN SUPPLEMENTS. SHE DENIES HAVING ANY OTHER RECENT CHANGES IN HER OVERALL HEALTH. DAIJA'S ARE 1.3 ON THE RIGHT AND 1.2 ON THE LEFT. ON EXAM TODAY THE ULCER MEASUREMENTS ARE IMPROVED AND THERE IS LESS SLOUGH, NO SIGN OF INFECTION. OVERALL THERE HAS BEEN A 80% DECREASE IN SIZE SINCE STARTING TREATMENT. THE PATIENT HAD A VEIN ABLATION OF THE LEFT LOWER EXTREMITY ON JANUARY 05, 2022. DEBRIDEMENT HAS BEEN LIMITED BY TENDERNESS. LABS: 04/13/24: CULTURE GREW PSEUDOMONAS AERUGINOSA RESISTANT TO ORAL ANTIBIOTICS 07/01/23: CULTURES GREW PSEUDOMONAS AERUGINOSA RESISTANT TO QUINOLONE ANTIBIOTICS 05/16/23: CULTURE GREW ENTEROCOCCUS FAECALIS MEDICAL HISTORY THIS INFORMATION WAS OBTAINED FROM THE CHART, PATIENT. PATIENT HAS A MEDICAL HISTORY OF: HYPERTENSIVE DISORDER UMESH ESTEBAN [id number] 1950 CHRONIC ULCER OF LOWER EXTREMITY ALLERGIC CONJUNCTIVITIS, BILAT HX OF ALLERGIC REACTION THYROID NODULE MAMMMOGRAM YEARLY SCREENING DEGENERATIVE JOINT DISEASE, LUMBAR SPINE SLEEP DISORDER VENOUS STASIS EDEMA WITH ULCER BMI 36-36.9 OSTEOARTHRITIS, KNEES BILAT ADENOMATOUS COLONIC POLYP HX OF CLOSED HEAD INJURY PREDIABETES ESSENTIAL HYPERTENSION ADDITIONAL INFORMATION DOES PATIENT HAVE A HISTORY OF CANCER? YES? COMPLETE ALL QUESTIONS.: NO SURGICAL HISTORY THIS INFORMATION WAS OBTAINED FROM THE PATIENT. PATIENT HAS A SURGICAL HISTORY OF: LEFT LEG VENOUS ABLATION- 01/06/2024 OBJECTIVE VITALS HEIGHT/LENGTH: 67 IN (170.18 CM), WEIGHT: 22.31 LBS (10.14 KGS), BMI: 3.5, TEMPERATURE: 98.3 ?F (36.83 ?C), PULSE: 71 BPM, RESPIRATORY RATE: 18 BREATHS/MIN, BLOOD PRESSURE: 143/89 MMHG, PULSE OXIMETRY: 99 %. PHYSICAL EXAM CONSTITUTIONAL: VITAL SIGNS REVIEWED AND NOTED. WELL DEVELOPED, WELL NOURISHED, AND IN NO ACUTE DISTRESS. ALERT AND ORIENTED X3. RESPIRATORY: EVEN RESPIRATIONS WITHOUT USE OF ACCESSORY MUSCLES. NO INTERCOASTAL RETRACTIONS NOTED. EVEN AND NON LABORED RESPIRATION. INTEGUMENTARY (HAIR, SKIN): SCARRING FROM PREVIOUS ULCERS. NO SWELLING, MILD PERIWOUND TENDERNESS. SEE WOUND ASSESSMENT. SKIN WARM AND DRY. NO RASHES. NEUROLOGICAL: SENSATION: SYMMETRIC FUNCTION BY INFORMAL OBSERVATION. PSYCHIATRIC: ORIENTATION TO TIME, PLACE AND PERSON: NORMAL AFFECT WITH NORMAL THOUGHT PATTERN. ADDITIONAL INFORMATION THE PATIENT'S POTENTIAL TO HEAL IS: FAIR. WOUND ASSESSMENT(S) WOUND #1 LEFT, MEDIAL ANKLE IS A CHRONIC FULL THICKNESS VENOUS ULCER ACQUIRED ON 11/16/2022 AND HAS RECEIVED A STATUS OF NOT HEALED. INITIAL WOUND ENCOUNTER MEASUREMENTS ARE 6.2CM LENGTH X 1.3CM WIDTH X 0.2 CM DEPTH, WITH AN AREA OF 8.06 SQ CM AND A VOLUME OF 1.612 CUBIC CM.INITIAL WOUND ENCOUNTER UMESH ESTEBAN [id number] 1950 PREVIOUS MEASUREMENTS FROM 06/01/2024 ARE 6.7CM LENGTH X 1.5CM WIDTH X 0.2CM DEPTH, WITH AN AREA OF 10.05 SQ CM AND A VOLUME OF 2.01 CUBIC CM. ADIPOSE IS EXPOSED. NO TUNNELING HAS BEEN NOTED. NO SINUS TRACT HAS BEEN NOTED. NO UNDERMINING HAS BEEN NOTED. THERE IS A MODERATE AMOUNT OF SEROSANGUINEOUS DRAINAGE NOTED WHICH HAS NO ODOR. THE PATIENT REPORTS A WOUND PAIN OF LEVEL 3/10. THE WOUND MARGIN IS ATTACHED WOUND BED HAS YES, BRIGHT RED, PINK, FIRM, GRANULATION, YES SLOUGH, NO ESCHAR, YES EPITHELIALIZATION. THE PERIWOUND SKIN EXHIBITED ATROPHIE WENDY AND HEMOSIDEROSIS. THE PERIWOUND SKIN DID NOT EXHIBIT BRAWNY INDURATION, EDEMA, EXCORIATION, INDURATION, CALLUS, CREPITUS, FLUCTUANCE, RASH, MACERATION, CYANOSIS, ECCHYMOSIS, ERYTHEMA, PALLOR AND RUBOR. THE PERIWOUND SKIN WAS NOT FRIABLE, DRY/SCALY AND MOIST. THE TEMPERATURE OF THE PERIWOUND SKIN IS WNL. PERIWOUND SKIN DOES NOT EXHIBIT SIGNS OR SYMPTOMS OF INFECTION. LOCAL PULSE IS PALPABLE. GENERAL NOTES EPITHELIAL BRIDGE 2.0 CM. ADDITIONAL INFORMATION OTHER DEVITALIZED TISSUE PRESENT: BIOFILM DAIJA/VASCULAR COMPLETED?: 05/16/23 RESULTS?: 1.23 ASSESSMENT ACTIVE PROBLEMS ICD-10 (ENCOUNTER DIAGNOSIS) L97.322 - NON-PRESSURE CHRONIC ULCER OF LEFT ANKLE WITH FAT LAYER EXPOSED (ENCOUNTER DIAGNOSIS) I87.2 - VENOUS INSUFFICIENCY (CHRONIC) (PERIPHERAL) GENERAL NOTES VENOUS ULCER MEDIAL LEFT ANKLE, MEASUREMENTS IMPROVED, NEW EPITHELIALIZATION PRESENT, LESS SLOUGH THE FOLLOWING FACTORS HAVE BEEN IDENTIFIED THAT MAY AFFECT WOUND HEALING: DEVITALIZED TISSUE BIOFILM POSSIBLE INFECTION VENOUS INSUFFICIENCY GOALS: REMOVE DEVITALIZED TISSUE REMOVE AND PREVENT BIOFILM IDENTIFY AND TREAT INFECTION COMPRESSION WOUND CLOSURE PREVENT RECURRENCE VEIN STUDY PLAN: DEBRIDEMENT, CONTINUE DAILY DRESSING CHANGES WITH URGO CLEAN EVERY OTHER DAY WITH PERSONAL COMPRESSION. ACETIC ACID RINSE. FOLLOW UP IN 1 WEEK FOR A RECHECK. CONTINUE PROTEIN SUPPLEMENTATION. PROCEDURES WOUND #1 WOUND #1 (VENOUS ULCER) IS LOCATED ON THE LEFT, MEDIAL ANKLE. A SKIN/SUBCUTANEOUS TISSUE LEVEL SURGICAL DEBRIDEMENT WITH A TOTAL AREA DEBRIDED OF 8.06 SQ CM. WAS PERFORMED BY PO FLORES MD. SUBCUTANEOUS WAS REMOVED ALONG WITH DEVITALIZED TISSUE: BIOFILM, EXUDATE AND SLOUGH. THE FOLLOWING UMESH ESTEBAN [id number] 1950 INSTRUMENT(S) WERE USED: CURETTE. PAIN CONTROL WAS ACHIEVED USING 4% LIDO. A TIME OUT WAS CONDUCTED PRIOR TO THE START OF THE PROCEDURE. A MODERATE AMOUNT OF BLEEDING WAS CONTROLLED WITH PRESSURE. THE PROCEDURE WAS TOLERATED WELL WITH A PAIN LEVEL OF 5 THROUGHOUT AND A PAIN LEVEL OF 3 FOLLOWING THE PROCEDURE. POST DEBRIDEMENT MEASUREMENTS: 6.2CM LENGTH X 1.3CM WIDTH X 0.3CM DEPTH; WITH AN AREA OF 8.06 SQ CM AND A VOLUME OF 2.418 CUBIC CM. ADDITIONAL INFORMATION MUSCLE FASCIA OR BONE REMOVED AND SENT TO PATHOLOGY?: NO PLAN WOUND ORDERS: WOUND #1 LEFT, MEDIAL ANKLE HAND HYGIENE HAND HYGIENE - WASH HANDS BEFORE AND AFTER WOUND CARE. CALL THE WOUND CENTER AT [phone] IF YOU HAVE SIGNS OR SYMPTOMS OF INFECTION, FEVER CHILLS OR SHAKES, INCREASED DRAINAGE, INCREASED ODOR OR UNUSUAL REDNESS. AFTER WOUND CENTER HOURS PLEASE NOTIFY YOUR PCP OR GO TO THE EMERGENCY ROOM. CLEANSER CLEANSE WOUND WITH NORMAL SALINE SOAK WOUND WITH ACETIC ACID 0.25% 10-15 MINUTES. - DONE POST PROCEDURE IN CLINIC. MAY SHOWER, LEAVE WOUND DRESSING INTACT. COVER WOUND DRESSING WITH A WATERPROOF BARRIER. KEEP DRESSING DRY. NO BATHS PLEASE. PROCEDURE / ANESTHETIC 5% TOPICAL LIDOCAINE TO WOUND BED PRIOR TO PROCEDURE, IN CLINIC ONLY. DRESSING ORDERS APPLY DRESSING(S) AND SECURE WITH: - URGOCLEAN, FENESTRATED (CUT), COVERED WITH ABD PAD AND SECURED WITH CONFORM. DRESSING CHANGE FREQUENCY CHANGE DRESSING EVERY OTHER DAY. CHANGE DRESSING IF IT BECOMES SOILED OR WET. COMPRESSION/EDEMA CONTROL ELEVATE LEG(S) ABOVE THE LEVEL OF THE HEART MUCH POSSIBLE. AVOID STANDING IN ONE POSITION FOR MORE THAN 10 MINUTES. AVOID SITTING WITH LEGS DOWN. DO NOT CROSS LEGS WHEN SITTING. APPLY KNEE-HIGH GRADIENT COMPRESSION STOCKINGS AT 20-30MMHG - MEDIGRIP E APPLY STOCKINGS/WRAPS IN MORNING AND REMOVE AT BEDTIME. ADDITIONAL ORDERS: DIETARY TAKE VITAMIN C 1000MG BY MOUTH DAILY. TAKE ZINC 25MG BY MOUTH DAILY. INCREASE THE PROTEIN IN YOUR DIET. OTHER NUTRITIONAL SUPPLEMENT: - AIM FOR ADDITIONAL 30 GRAMS TWICE DAILY. FOLLOW-UP APPOINTMENTS RETURN APPOINTMENT 1 WEEK SCRIBING ATTESTATION I ATTEST, THE NURSE, THAT I SCRIBED THESE ORDERS FOR THE WOUND CARE PROVIDER. PROVIDER REVIEW AND ATTESTATION: REVIEWED AND EVALUATED LABS. REVIEWED HOSPITAL RECORDS. DISCUSSED THE PLAN OF CARE @ BEDSIDE WITH - THE PATIENT I AGREE AND ATTEST TO THE ABOVE INFORMATION PROVIDED FROM OTHER LICENSED PROFESSIONALS. PLAN OF CARE: 01. ENSURE/ESTABLISH OPTIMAL BLOOD FLOW : - COMPLETE LOWER EXTREMITY ASSESSMENT STATUS: CONTINUED DATE: 05/25/2024 - PERFORM NON-INVASIVE VASCULAR TESTING (I.E. DAIJA) AND DOCUMENT FINDINGS. CONSIDER REPEATING WHEN ESTEBANHOWARDSHANEKATHERIN [id number] 1950 WOUND HEALING <40% AFTER 30 DAYS OF WOUND CARE. STATUS: CONTINUED DATE: 05/25/2024 02. ASSESS FOR/TREAT INFECTION : - EVALUATE FOR SIGNS AND SYMPTOMS OF INFECTION AND DOCUMENT FINDINGS. STATUS: CONTINUED DATE: 05/25/2024 03. DEBRIDE WEEKLY OR MORE OFTEN PRN : - EVALUATE PATIENT IN CENTER WEEKLY TO ASSESS WOUND BED AND MARGINS FOR NEED FOR DEBRIDEMENT. STATUS: CONTINUED DATE: 05/25/2024 - DEBRIDEMENT BY ANY METHOD TO REMOVE DEVITALIZED/NECROTIC TISSUE TO PROMOTE HEALING AND PREVENT FURTHER COMPLICATIONS. GOAL IS TO STIMULATE AND/OR MAINTAIN ACUTE PHASE OF WOUND HEALING BY REDUCING BACTERIAL BURDEN AND DEVITALIZED/NON-VIABLE TISSUE. STATUS: CONTINUED DATE: 05/25/2024 04. OPTIMIZE GLUCOSE CONTROL AND NUTRITION : - ORDER/REVIEW PERTINENT LABS TO EVALUATE RENAL FUNCTION, GLUCOSE CONTROL, AND NUTRITIONAL STATUS. STATUS: CONTINUED DATE: 05/25/2024 - COMPLETE A NUTRITION RISK ASSESSMENT. STATUS: COMPLETED DATE: 05/16/2023 05. OFFLOADING PLAN : - REVIEWED, NOT APPLICABLE 06. OPTIMIZE HOST FACTORS: - ASSESS AND REVIEW PATIENT HISTORY FOR WOUND ETIOLOGY, CO-MORBID CONDITIONS, MEDICATION REGIME, AND SMOKING HISTORY. STATUS: CONTINUED DATE: 05/25/2024 - ASSESS LIFESTYLE FACTORS SUCH SMOKING, ALCOHOL/DRUG ABUSE, EATING HABITS/MALNUTRITION AND ACTIVITY LEVEL. STATUS: CONTINUED DATE: 05/25/2024 07. DRESSING SELECTION : - EVALUATE FOR DRESSING-RELATED FACTORS, SUCH AVAILABILITY, WEAR TIME, ADAPTABILITY AND USE TO BETTER OPTIMIZE WOUND HEALING AND PATIENT COMPLIANCE. STATUS: CONTINUED DATE: 05/25/2024 - CHOOSE TOPICAL TREATMENTS AND/OR DRESSING BASED ON WOUND TYPE AND APPEARANCE, PERIWOUND SKIN CONDITION, WOUND SIZE AND DEPTH, ANATOMIC LOCATION, VOLUME OF EXUDATE, EDEMA IN THE LOWER EXTREMITIES, AND RISK OR PRESENCE OF INFECTION. STATUS: CONTINUED DATE: 05/25/2024 08. ADVANCED MODALITIES : - SET TREATMENT GOALS ACCORDING TO PATIENT AND/OR CAREGIVER?S ABILITY/ COMPLIANCE. STATUS: CONTINUED DATE: 05/25/2024 - RE-EVALUATE PLAN OF CARE IF NO EVIDENCE OF HEALING (40% IN 4 WEEKS). STATUS: CONTINUED DATE: 05/25/2024 09. FALL PREVENTION : - REVIEWED, NOT APPLICABLE 10. PAIN MANAGEMENT : - COMPLETE PAIN ASSESSMENT STATUS: CONTINUED DATE: 05/25/2024 - PREPARE PATIENT TO SET REASONABLE EXPECTATIONS PRIOR TO PROCEDURE. STATUS: CONTINUED DATE: 05/25/2024 11. MEASURABLE GOALS FOR WOUND HEALING AND/OR HYPERBARIC OXYGEN THERAPY : - DECREASE PAIN STATUS: CONTINUED DATE: 05/25/2024 - DECREASE WOUND DIMENSIONS UMESH ESTEBAN [id number] 1950 STATUS: CONTINUED DATE: 05/25/2024 - WOUND CLOSURE STATUS: CONTINUED DATE: 05/25/2024 - IMPROVE QUALITY OF LIFE STATUS: CONTINUED DATE: 05/25/2024 12. DURATION/FREQUENCY OF WOUND CARE VISITS : - 1X WEEKLY FOR 30 DAYS STATUS: CONTINUED DATE: 05/25/2024 ELECTRONIC SIGNATURE(S) SIGNED BY: DATE: PO FLORES MD 06/08/2024 15:58:23 (PT) ENTERED BY: PO FLORES MD ON 06/08/2024 13:09:18 (PT) UMESH ESTEBAN [id number] 1950
== END ==
LOC: WC 11:34
PROVIDERS: PCP Internal Medicine; Referring Provider Internal Medicine; Visit Provider Surgery
DX: I87.2 Venous insufficiency (chronic) (peripheral) (principal); L97.322 Non-pressure chronic ulcer of left ankle with fat layer exposed; L98.8 Other specified disorders of the skin and subcutaneous tissue
CPT/HCPCS: 11042

== ENCOUNTER → 2024-06-15 11:46 | Outpatient (CLI) | payer MEDICARE, SELFPAY | LOC: WC 11:46 | PROVIDERS: PCP Internal Medicine; Referring Provider Internal Medicine; Visit Provider Surgery | DX: I87.2 Venous insufficiency (chronic) (peripheral) (principal); L97.322 Non-pressure chronic ulcer of left ankle with fat layer exposed; L98.8 Other specified disorders of the skin and subcutaneous tissue | CPT/HCPCS: 11042 ==

== ENCOUNTER → 2024-06-29 11:29 | Outpatient (CLI) | payer MEDICARE, SELFPAY | LOC: WC 11:30 | PROVIDERS: PCP Internal Medicine; Referring Provider Internal Medicine; Visit Provider Surgery | DX: I87.2 Venous insufficiency (chronic) (peripheral) (principal); L97.322 Non-pressure chronic ulcer of left ankle with fat layer exposed; L98.8 Other specified disorders of the skin and subcutaneous tissue | CPT/HCPCS: 11042; 99213 ==

== ENCOUNTER → 2024-07-06 11:34 | Outpatient (CLI) | payer MEDICARE, SELFPAY | LOC: WC 11:35 | PROVIDERS: PCP Internal Medicine; Referring Provider Internal Medicine; Visit Provider Surgery | DX: I87.2 Venous insufficiency (chronic) (peripheral) (principal); L97.322 Non-pressure chronic ulcer of left ankle with fat layer exposed; L98.8 Other specified disorders of the skin and subcutaneous tissue | CPT/HCPCS: 11042 ==

== ENCOUNTER → 2024-07-20 11:12 | Outpatient (CLI) | payer MEDICARE, SELFPAY | LOC: WC 11:13 | PROVIDERS: PCP Internal Medicine; Referring Provider Internal Medicine; Visit Provider Surgery | DX: I87.2 Venous insufficiency (chronic) (peripheral) (principal); L97.322 Non-pressure chronic ulcer of left ankle with fat layer exposed | CPT/HCPCS: 11042 ==

== ENCOUNTER → 2024-07-27 11:11 | Outpatient (CLI) | payer MEDICARE, SELFPAY | LOC: WC 11:12 | PROVIDERS: PCP Internal Medicine; Referring Provider Internal Medicine; Visit Provider Surgery | DX: I87.2 Venous insufficiency (chronic) (peripheral) (principal); L97.322 Non-pressure chronic ulcer of left ankle with fat layer exposed; R60.0 Localized edema | CPT/HCPCS: 11042; 99213 ==

== ENCOUNTER → 2024-08-03 11:24 | Outpatient (CLI) | payer MEDICARE, SELFPAY | LOC: WC 11:25 | PROVIDERS: PCP Internal Medicine; Referring Provider Internal Medicine; Visit Provider Surgery | DX: I87.2 Venous insufficiency (chronic) (peripheral) (principal); L97.322 Non-pressure chronic ulcer of left ankle with fat layer exposed | CPT/HCPCS: 11042 ==

== ENCOUNTER → 2024-08-17 16:06 | Outpatient (CLI) | payer MEDICARE, SELFPAY | LOC: WC 16:07 | PROVIDERS: PCP Internal Medicine; Referring Provider Internal Medicine; Visit Provider Surgery | DX: I87.2 Venous insufficiency (chronic) (peripheral) (principal); L97.322 Non-pressure chronic ulcer of left ankle with fat layer exposed | CPT/HCPCS: 11042 ==

== ENCOUNTER → 2024-08-24 11:57 | Outpatient (CLI) | payer MEDICARE, SELFPAY | LOC: WC 11:58 | PROVIDERS: PCP Internal Medicine; Referring Provider Internal Medicine; Visit Provider Surgery | DX: I87.2 Venous insufficiency (chronic) (peripheral) (principal); L97.322 Non-pressure chronic ulcer of left ankle with fat layer exposed | CPT/HCPCS: 11042; 99213 ==

== ENCOUNTER → 2024-08-31 10:34 | Outpatient (CLI) | payer MEDICARE, SELFPAY | LOC: WC 10:39 | PROVIDERS: PCP Internal Medicine; Referring Provider Internal Medicine; Visit Provider Surgery | DX: I87.2 Venous insufficiency (chronic) (peripheral) (principal); L97.322 Non-pressure chronic ulcer of left ankle with fat layer exposed; R60.0 Localized edema; L53.9 Erythematous condition, unspecified | CPT/HCPCS: 11042; 87070; 87077; 87186; 87205 ==

== ENCOUNTER → 2024-09-07 16:28 | Outpatient (CLI) | payer MEDICARE, SELFPAY | LOC: WC 16:28 | PROVIDERS: PCP Internal Medicine; Referring Provider Internal Medicine; Visit Provider Physician Assistant | DX: I87.2 Venous insufficiency (chronic) (peripheral) (principal); L97.322 Non-pressure chronic ulcer of left ankle with fat layer exposed | CPT/HCPCS: 11042; 99213 ==

== ENCOUNTER → 2024-09-14 12:00 | Outpatient (CLI) | payer MEDICARE, SELFPAY | LOC: WC 12:01 | PROVIDERS: PCP Internal Medicine; Referring Provider Internal Medicine; Visit Provider Surgery | DX: I87.2 Venous insufficiency (chronic) (peripheral) (principal); L97.322 Non-pressure chronic ulcer of left ankle with fat layer exposed; R60.0 Localized edema | CPT/HCPCS: 11042 ==

== ENCOUNTER → 2024-09-21 11:36 | Outpatient (CLI) | payer MEDICARE, SELFPAY | PROVIDERS: PCP Internal Medicine; Referring Provider Internal Medicine; Visit Provider Surgery | DX: I87.312 Chronic venous hypertension (idiopathic) with ulcer of left lower extremity (principal); L97.322 Non-pressure chronic ulcer of left ankle with fat layer exposed | CPT/HCPCS: 11042; 99213 ==

== ENCOUNTER → 2024-10-05 11:41 | Outpatient (CLI) | payer MEDICARE, SELFPAY | LOC: WC 11:42 | PROVIDERS: PCP Internal Medicine; Referring Provider Internal Medicine; Visit Provider Surgery | DX: I87.2 Venous insufficiency (chronic) (peripheral) (principal); L97.322 Non-pressure chronic ulcer of left ankle with fat layer exposed; L53.9 Erythematous condition, unspecified | CPT/HCPCS: 11042; 11045; 87070; 87077; 87186; 87205; 99213 ==

== ENCOUNTER → 2024-10-12 11:56 | Outpatient (CLI) | payer MEDICARE, SELFPAY | LOC: WC 11:57 | PROVIDERS: PCP Internal Medicine; Referring Provider Internal Medicine; Visit Provider Surgery | DX: I87.312 Chronic venous hypertension (idiopathic) with ulcer of left lower extremity (principal); L97.322 Non-pressure chronic ulcer of left ankle with fat layer exposed; I87.2 Venous insufficiency (chronic) (peripheral); B96.5 Pseudomonas (aeruginosa) (mallei) (pseudomallei) as the cause of diseases classified elsewhere; I10 Essential (primary) hypertension | CPT/HCPCS: 11042; 11045 ==

== ENCOUNTER → 2024-11-18 10:02 | Outpatient (CLI) | payer MEDICARE, SELFPAY | PROVIDERS: PCP Internal Medicine; Referring Provider Internal Medicine; Visit Provider Physician Assistant | DX: I87.2 Venous insufficiency (chronic) (peripheral) (principal); L97.322 Non-pressure chronic ulcer of left ankle with fat layer exposed; L81.8 Other specified disorders of pigmentation; L90.8 Other atrophic disorders of skin; R60.0 Localized edema; I10 Essential (primary) hypertension; R20.8 Other disturbances of skin sensation | CPT/HCPCS: 11042; 99213 ==

== ENCOUNTER → 2024-11-25 10:17 | Outpatient (CLI) | payer MEDICARE, SELFPAY | LOC: WC 10:17 | PROVIDERS: PCP Internal Medicine; Referring Provider Internal Medicine; Visit Provider Surgery | DX: I87.2 Venous insufficiency (chronic) (peripheral) (principal); L97.322 Non-pressure chronic ulcer of left ankle with fat layer exposed; L81.8 Other specified disorders of pigmentation; I10 Essential (primary) hypertension | CPT/HCPCS: 11042 ==

== ENCOUNTER → 2024-12-02 11:22 | Outpatient (CLI) | payer MEDICARE, SELFPAY | LOC: WC 11:22 | PROVIDERS: PCP Internal Medicine; Referring Provider Internal Medicine; Visit Provider Surgery | DX: I87.2 Venous insufficiency (chronic) (peripheral) (principal); L97.322 Non-pressure chronic ulcer of left ankle with fat layer exposed; L53.8 Other specified erythematous conditions; L98.8 Other specified disorders of the skin and subcutaneous tissue | CPT/HCPCS: 11042 ==

== ENCOUNTER → 2024-12-09 11:23 | Outpatient (CLI) | payer MEDICARE, SELFPAY | LOC: WC 11:24 | PROVIDERS: PCP Internal Medicine; Referring Provider Internal Medicine; Visit Provider Surgery | DX: I87.2 Venous insufficiency (chronic) (peripheral) (principal); L97.322 Non-pressure chronic ulcer of left ankle with fat layer exposed; L53.8 Other specified erythematous conditions; L98.8 Other specified disorders of the skin and subcutaneous tissue | CPT/HCPCS: 11042 ==

== ENCOUNTER → 2024-12-16 10:34 | Outpatient (CLI) | payer MEDICARE, SELFPAY | LOC: WC 10:34 | PROVIDERS: PCP Internal Medicine; Referring Provider Internal Medicine; Visit Provider Surgery | DX: I87.2 Venous insufficiency (chronic) (peripheral) (principal); L97.322 Non-pressure chronic ulcer of left ankle with fat layer exposed | CPT/HCPCS: 11042; 99213 ==

== ENCOUNTER → 2024-12-23 13:06 | Outpatient (CLI) | payer MEDICARE, SELFPAY | LOC: WC 13:07 | PROVIDERS: PCP Internal Medicine; Referring Provider Internal Medicine; Visit Provider Surgery | DX: I87.2 Venous insufficiency (chronic) (peripheral) (principal); L97.322 Non-pressure chronic ulcer of left ankle with fat layer exposed; L81.8 Other specified disorders of pigmentation; L90.8 Other atrophic disorders of skin; L90.5 Scar conditions and fibrosis of skin; I10 Essential (primary) hypertension | CPT/HCPCS: 11042 ==

== ENCOUNTER → 2024-12-30 16:33 | Outpatient (CLI) | payer MEDICARE, SELFPAY | LOC: WC 16:34 | PROVIDERS: PCP Internal Medicine; Referring Provider Internal Medicine; Visit Provider Surgery | DX: L97.322 Non-pressure chronic ulcer of left ankle with fat layer exposed (principal); I87.2 Venous insufficiency (chronic) (peripheral); L53.9 Erythematous condition, unspecified; L90.5 Scar conditions and fibrosis of skin | CPT/HCPCS: 11042 ==

== ENCOUNTER → 2025-01-06 12:11 | Outpatient (CLI) | payer MEDICARE, SELFPAY | LOC: WC 12:12 | PROVIDERS: PCP Internal Medicine; Referring Provider Internal Medicine; Visit Provider Surgery | DX: I87.2 Venous insufficiency (chronic) (peripheral) (principal); L97.322 Non-pressure chronic ulcer of left ankle with fat layer exposed; L53.8 Other specified erythematous conditions; L98.8 Other specified disorders of the skin and subcutaneous tissue | CPT/HCPCS: 11042 ==

== ENCOUNTER → 2025-01-13 16:24 | Outpatient (CLI) | payer MEDICARE, SELFPAY | LOC: WC 16:25 | PROVIDERS: PCP Internal Medicine; Referring Provider Internal Medicine; Visit Provider Surgery | DX: I87.2 Venous insufficiency (chronic) (peripheral) (principal); L97.322 Non-pressure chronic ulcer of left ankle with fat layer exposed; L81.8 Other specified disorders of pigmentation; L90.5 Scar conditions and fibrosis of skin; L90.8 Other atrophic disorders of skin; R60.0 Localized edema; I10 Essential (primary) hypertension | CPT/HCPCS: 11042; 99213 ==

== ENCOUNTER → 2025-01-20 12:00 | Outpatient (CLI) | payer MEDICARE, SELFPAY | LOC: WC 12:01 | PROVIDERS: PCP Internal Medicine; Referring Provider Internal Medicine; Visit Provider Surgery | DX: I87.2 Venous insufficiency (chronic) (peripheral) (principal); L97.322 Non-pressure chronic ulcer of left ankle with fat layer exposed; L53.8 Other specified erythematous conditions; L98.8 Other specified disorders of the skin and subcutaneous tissue; R60.0 Localized edema | CPT/HCPCS: 11042 ==

== ENCOUNTER → 2025-01-25 10:29 | Outpatient (CLI) | payer MEDICARE, SELFPAY | LOC: WC 10:30 | PROVIDERS: PCP Internal Medicine; Referring Provider Internal Medicine; Visit Provider Surgery | DX: L97.322 Non-pressure chronic ulcer of left ankle with fat layer exposed (principal); I87.2 Venous insufficiency (chronic) (peripheral); L53.8 Other specified erythematous conditions; L98.8 Other specified disorders of the skin and subcutaneous tissue | CPT/HCPCS: 11042 ==

== ENCOUNTER → 2025-02-01 10:48 | Outpatient (CLI) | payer MEDICARE, SELFPAY | LOC: WC 10:48 | PROVIDERS: PCP Internal Medicine; Referring Provider Internal Medicine; Visit Provider Surgery | DX: I87.2 Venous insufficiency (chronic) (peripheral) (principal); L97.322 Non-pressure chronic ulcer of left ankle with fat layer exposed; L53.8 Other specified erythematous conditions; L98.8 Other specified disorders of the skin and subcutaneous tissue; R60.0 Localized edema | CPT/HCPCS: 11042 ==

== ENCOUNTER → 2025-02-08 10:53 | Outpatient (CLI) | payer MEDICARE, SELFPAY | LOC: WC 11:07 | PROVIDERS: PCP Internal Medicine; Referring Provider Internal Medicine; Visit Provider Surgery | DX: I87.2 Venous insufficiency (chronic) (peripheral) (principal); L97.322 Non-pressure chronic ulcer of left ankle with fat layer exposed; L53.8 Other specified erythematous conditions; R60.0 Localized edema; L98.8 Other specified disorders of the skin and subcutaneous tissue | CPT/HCPCS: 11042; 99213 ==

== ENCOUNTER → 2025-02-15 10:52 | Outpatient (CLI) | payer MEDICARE, SELFPAY | LOC: WC 10:52 | PROVIDERS: PCP Internal Medicine; Referring Provider Internal Medicine; Visit Provider Surgery | DX: I87.2 Venous insufficiency (chronic) (peripheral) (principal); L97.322 Non-pressure chronic ulcer of left ankle with fat layer exposed; L53.8 Other specified erythematous conditions; L98.8 Other specified disorders of the skin and subcutaneous tissue | CPT/HCPCS: 11042 ==

== ENCOUNTER → 2025-02-22 10:07 | Outpatient (CLI) | payer MEDICARE, SELFPAY | LOC: WC 10:43 | PROVIDERS: PCP Internal Medicine; Referring Provider Internal Medicine; Visit Provider Surgery | DX: I87.2 Venous insufficiency (chronic) (peripheral) (principal); L97.322 Non-pressure chronic ulcer of left ankle with fat layer exposed; L81.8 Other specified disorders of pigmentation; L90.5 Scar conditions and fibrosis of skin; L90.8 Other atrophic disorders of skin; I10 Essential (primary) hypertension | CPT/HCPCS: 11042 ==

== ENCOUNTER → 2025-03-02 09:29 | Outpatient (CLI) | payer MEDICARE, SELFPAY | LOC: WC 09:33 | PROVIDERS: Visit Provider Surgery | DX: I87.2 Venous insufficiency (chronic) (peripheral) (principal); L97.322 Non-pressure chronic ulcer of left ankle with fat layer exposed; L53.8 Other specified erythematous conditions; L98.8 Other specified disorders of the skin and subcutaneous tissue; R60.0 Localized edema | CPT/HCPCS: 11042 ==

== ENCOUNTER → 2025-03-08 14:57 | Outpatient (CLI) | payer MEDICARE, SELFPAY | LOC: WC 14:58 | PROVIDERS: Visit Provider Surgery | DX: I87.2 Venous insufficiency (chronic) (peripheral) (principal); L97.322 Non-pressure chronic ulcer of left ankle with fat layer exposed; I10 Essential (primary) hypertension | CPT/HCPCS: 11042; 99213 ==

== ENCOUNTER → 2025-03-15 16:26 | Outpatient (CLI) | payer MEDICARE, SELFPAY | LOC: WC 16:28 | PROVIDERS: Referring Provider Podiatrist; Visit Provider Surgery | DX: I87.2 Venous insufficiency (chronic) (peripheral) (principal); L97.322 Non-pressure chronic ulcer of left ankle with fat layer exposed; L98.8 Other specified disorders of the skin and subcutaneous tissue; I10 Essential (primary) hypertension | CPT/HCPCS: 11042 ==